=== PATIENT | female | born 1990 | race Caucasian/White ===

== ENCOUNTER 2017-02-19 11:22 | Emergency (ER) | payer MEDICAID ==
[2017-02-19 12:57] LABS: % BASOPHILS 4.8 % (0.0-2.0); % EOSINOPHILS 1.8 % (0.0-5.0); % LYMPHOCYTES 33.6 % (20.0-50.0); % MONOCYTES 12.6 % (2.0-10.0); % NEUTROPHILS 47.2 % (40.0-80.0); BASOPHILE ABSOLUTE 0.2 Th/cumm (0-0.2); EOSINOPHILE ABSOLUTE 0.1 Th/cmm (0.1-0.4); HEMATOCRIT 43.8 % (41.0-60); HEMOGLOBIN 14.3 gm/dL (12-16); LYMPHOCYTE ABSOLUTE 1.7 Th/cmm (1.5-3.0); MEAN CELL VOLUME 88.8 fl (81-100); MEAN CORPUSCULAR HGB CONC 32.7 pg (28.0-36.0); MEAN PLATELET VOLUME 8.4 fl; MONOCYTE ABSOLUTE 0.7 Th/cmm (0.3-1.0); NEUTROPHILE ABSOLUTE 2.5 Th/cmm (1.8-8.0); PLATELET COUNT 245 Th/cmm (150-400); RED BLOOD COUNT 4.94 Mil/cmm (3.80-5.10); RED CELL DISTRIBUTION WIDTH 12.4 % (11.5-20.0); WHITE BLOOD COUNT 5.2 Th/cmm (4.8-10.8)
[2017-02-19] MEDS ORDERED: Amoxicillin/Clavulanat 875/125 Tab PO SCH (13:00)
[2017-02-19 13:14] LABS: ANION GAP 8.6 (7.0-16.0); BUN - UREA NITROGEN 8 mg/dL (7-25); CALCIUM SERUM 9.2 mg/dL (8.6-10.3); CARBON DIOXIDE 27.7 mEq/L (21.0-31.0); CHLORIDE 103 mEq/L (98-107); CREATININE - SERUM 0.8 mg/dL (0.6-1.2); GFR AFRICAN-AMERICAN > 60.0 ml/min (>90); GFR NON AFRICAN-AMERICAN > 60.0 ml/min; GLUCOSE 107 mg/dL (70-105); POTASSIUM SERUM 4.3 mEq/L (3.5-5.1); SODIUM SERUM 135 mEq/L (136-145)
[2017-02-19] MEDS ORDERED: Triple Antibiotic 0.94 gm Pkt TP ONE (13:26)
[2017-02-19] MEDS ORDERED: Amoxicillin/Clavulanat 875/125 Tab ONE (13:31)
--- NOTE | 2017-02-19 22:29 | Discharge Summary ---
DATE OF DISCHARGE: 02/19/2017 She was discharged from the Emergency Room. HOSPITAL COURSE: The patient came in because of she was pulled by a dog about 20 feet and then she fell down and she had some laceration on the left knee and there were some abrasions over there. There is about an inch in size area, which is showing some purulent discharge, hence she came to the Emergency Room. I saw the patient, examined the patient. No other significant history. No allergies. Family history is normal negative, no other clinical history. Lungs are clear. Heart is showing normal heart sounds. No abnormal murmur, click or rub. Central nervous system is within normal limits. She says she has keloid formation occurring to her, but one cannot be sure what will give her keloid, whether this minor abrasion that she had will give her or not is not known. She should follow up with her primary MD for further followup appointment. The patient has been given Tdap (tetanus diphtheria) and Pertussis vaccine Adacel 0.5 mL IM once was given. The nurse was informed to clean the area with hydrogen peroxide or with some alcohol swabs and clean it up with clean gauze and cover it up with Neosporin ointment and then apply a Band-Aid or curly dressing. She should apply the Neosporin ointment daily and cover it up with Band-Aid solution and she should take Augmentin tablets 850 mg twice a day for 4 days along with yogurt or probiotic. CBC and BMP has been done and I requested a culture. Also, over the area to be done and I think then the lab values come in. The culture takes time, but the patient can go home. If the culture comes positive, the nurse needs to notify her because I may not be on duty on that day and with Augmentin she should get better. Otherwise, she should see her own physician or come to the Emergency Room as needed. FINAL DIAGNOSES: 1. Laceration on the left [id number] area with some other scratch nevin on the left lower extremity because of pulling by a dog. 2. She has keloid formation as a history. Otherwise, the patient has no other significant complaints. The patient is given tetanus injection and antibiotics. Cultures have been done. Antibiotics have been given to the patient. JOB# [id number]
== END 2017-02-19 14:31 | disposition home or self-care (01) ==
LOC: ER 11:22
DX: S81.812A Laceration without foreign body, left lower leg, initial encounter (principal); X58.XXXA Exposure to other specified factors, initial encounter; Y93.89 Activity, other specified; Y92.89 Other specified places as the place of occurrence of the external cause; Y99.8 Other external cause status
CPT/HCPCS: 36415-UA; 80048-TC; 85025-TC; Z7502; Z7610